=== PATIENT | male | born 1960 ===

== ENCOUNTER 2018-12-18 05:32 | Inpatient (IN) | payer MEDICARE, MEDICAID ==
[~2018-12-18] VITALS: Ht 182.9 cm; Wt 88.3 kg
[2018-12-18] MEDS ORDERED: LISINOPRIL40 MG PO (05:53)
--- NOTE | 2018-12-18 09:35 | NUR ---
58 YEAR OLD MALE PATIENT ADMITTED TO CCU VIA STRETCHER FROM ED UNDER DR. MI WITH DX OF HEART FAILURE POSSIBEL PNEUMONIA. UPON ADMIT PATIENT IS ALERT AND ORIENTED. IS ABLE TO TALK IN COMPLETE SENTENCES. INCREASED SOB WITH EXERTION, UPON TRANSFER FROM STRETCHER TO BED. IV ABX INFUSING. ADMISSION PROCESS STARTED. PATIENT STATES HE BEGAN HAVING SHORTNESS OF BREATH APPROX 4 DAYS AGO WITH RIGHT SIDE CHEST/ABD PAIN. PATEINT RECIEVED DILAUDID TWICE IN ER.
--- NOTE | 2018-12-18 09:40 | NUR ---
VERY DIAPHORTIC, C/O INCREASED RIGHT UPPER ABD PAIN. ANXIOUS. PATIENT STATES THEY MUST NOT HAVE GIVEN ME PHENERGAN IN ER WITH THE PAIN MEDICATION. ZOFRAN 4 MG IV GIVEN WELL ROUTINE MEDICATION ORDERED. PATIENT IS AWARE OF FLUID RESTRICTION OF 1600 ML OVER 24 HR.
--- NOTE | 2018-12-18 10:40 | NUR ---
NORCO 2 GIVEN FOR PAIN IN RIGHT SIDE AND CHEST. LIDOCAINE PATCH ALSO PLACED.
--- NOTE | 2018-12-18 11:33 | NUR ---
STATES HE IS BREATHING MUCH EASIER NOW.
--- NOTE | 2018-12-18 12:00 | NUR ---
ASSESSMENT DONE. BREATH SOUNDS MORE DIMINISHED ON RIGHT THAN LEFT. ENC DEEP BREATHING.
--- NOTE | 2018-12-18 12:05 | NUR ---
BOLUS 500 ML OF LR HUNG PER ORDERS.
--- NOTE | 2018-12-18 16:00 | NUR ---
ASSESSMENT UNCHANGED. TALKATIVE AND IS IN GOOD SPIRITS.
--- NOTE | 2018-12-18 16:35 | NUR ---
BLADDER SCANNED PT FOR 172ML. PT DENIED FEELING THE NEED TO VOID. STATES HE HAS DRANK MULTIPLE GLASSES OF WATER AND POWERADE. UNABLE TO PALPATE BLADDER.
--- NOTE | 2018-12-18 16:50 | NUR ---
STATES HE FEELS MUCH BETTER. MILD DISCOMFORT RIGHT UPPER ABD/LOWER R SIDE OF CHEST. VERY TALKATIVE. TAKING PO FLUIDS WELL. O2 SAT HI 90'S ON RA.
[2018-12-18] MEDS ORDERED: ALEVE220 MG PO (17:06)
--- NOTE | 2018-12-18 17:15 | NUR ---
VOIDED 150 ML OF CONCENTRATED URINE. DENEIS PAINFUL URINATION.
--- NOTE | 2018-12-18 18:23 | NUR ---
MED REC COMPLETE
--- NOTE | 2018-12-18 18:40 | NUR ---
C/O INCREASED PAIN IN RIGHT UPPER ABD, RIGHT LOWE CHEST. SKIN IS DAMP TO TOUCH. NORCO 2 TABS GIVEN.
--- NOTE | 2018-12-18 19:41 | EKG ---
[facility] [address] [place], [place] [address] Signed Sinus tachycardia with frequent premature ventricular complexes Possible Left atrial enlargement Left axis deviation Anterior infarct , age undetermined Abnormal ECG No previous ECGs available Confirmed by MAYELIN SOLANO DO ([id number]) on 12/18/2018 7:41:35 PM Electronically Signed By: MAYELIN SOLANO DO 12/18/181940 PATIENT NAME: CHANTALE TAMAYO Electrocardiogram DATE OF : 58 PHYSICIAN: MAYELIN SOLANO DO REPORT #: [id number] REPORT IS CONFIDENTIAL AND NOT TO BE RELEASED WITHOUT AUTHORIZATION
--- NOTE | 2018-12-18 19:53 | NUR ---
SHIFT REPORT RECEIVED. PATIENT RESTING IN BED. APPEARS TO BE SLEEPING. CALL LIGHT IN REACH.
--- NOTE | 2018-12-18 20:23 | NUR ---
PATIENT RESTING IN BED WATCHING TV. ORIENTED X4. REPORTS PAIN OVER XIPHOID PROCESS AND TO THE RIGHT OF THIS ABOUT 3 INCHES OVER HIS LOWER RIBS. STATES THE PAIN FEELS DEEPER THAN MUSCLE PAIN. RATED 2/10 NOW WITH PRN NORCO AND LIDODERM PATCH. PATIENT TOLERATING ROOM AIR, DENIES SOB AT THIS TIME. LUNGS ARE CLEAR IN SOCORRO UPPER LOBES WITH FINE CRACKLES IN BASES THAT DOES NOT CLEAR WITH COUGH. ABD SOFT AND NONTENDER, BOWEL SOUNDS ACTIVE. PATIENT'S RADIAL AND APICAL PULSE ARE INCONSISTENT. HEART RHYTHM SINUS TACH WITH TRIGEMITY, RATE IN 110-115 AT REST. RADIAL PULSE OF 65-70. BP STABLE. AFEBRILE. CMS INTACT, EXTREMITITES WARM AND PINK. PATIENT DENIES NEED TO VOID AT THIS TIME. FRESH ICE WATER PROVIDED. IV SL.
--- NOTE | 2018-12-18 22:41 | NUR ---
PATIENT'S FRIEND LEFT FOR THE NIGHT. PATIENT REQUEST SLEEP AID. PRN TYLENOL AND ONE TIME BENADRYL PROVIDED. PATIENT VOIDED 25MLS, STATES "I FEEL LIKE I HAVE TO GO, JUST GIVE ME A VERY MINS". provided fresh ice water.
--- NOTE | 2018-12-19 00:18 | NUR ---
PATIENT UNABLE TO VOID AT THIS TIME. PRN BOLUS OF 500 ML LR STARTED.
--- NOTE | 2018-12-19 01:05 | NUR ---
BOLUS INFUSED. REQUESTING PAIN MED FOR R CHEST DISCOMROT. GIVEN 2 NOROC PO.
--- NOTE | 2018-12-19 02:44 | NUR ---
NOTIFED OF PATIENT'S LOW URINE OUTPUT. NO NEW ORDERS.
--- NOTE | 2018-12-19 03:20 | NUR ---
TELEPHONE ORDER FROM DR. SOLANO TO INFUSE 500 ML LR AT 250 ML/HR. DISCUSSED THIS WITH PATIENT AND STARTED BOLUS. PATIENT DENIES ANY NEEDS.
--- NOTE | 2018-12-19 05:00 | NUR ---
PATIENT RESTING IN BED. STATES HE IS HAVING TROUBLE GETTING COMFORTABLE BUT DENIES PAIN. LUNGS ARE CLEAR, DIM IN THE BASES. NO COMPLAINTS OF NAUSEA. DENIES NEED TO VOID, STATES "I'M GETTING THERE".
--- NOTE | 2018-12-19 05:33 | NUR ---
PATIENT VOIDED 100 ML AND HAD SMALL BM. REPORTS FEELING CONSTIPATED, AGREED STOOL SOFTENER WOULD BE HELPFUL. NIO ADDED TO START THIS AM. PATIENT DENIES FEELING SOB OR PAINFUL. SITTING IN BED USING CELLPHONE.
--- NOTE | 2018-12-19 08:22 | NUR ---
PT ALERT AND ORIENTED SITTING IN RECLINER. MD ORDERS RECEIVED. LASIX GIVEN. 16F CHOWDARY CATHETER INSERTED WITHOUT DIFFICULTY. IMMEDIATE RETURN OF DARK YELLOW URINE NOTED. PT JAMIL WELL. ASSESSMENT COMPLETE.
--- NOTE | 2018-12-19 08:40 | NUR ---
FLUID RESTRICTION ORDER NOTED AND DISCUSSED WITH PT. PT STATES HIS UNDERSTANDING OF LIMITING HIS FLUID INTAKE THROUGHOUT THE DAY.
--- NOTE | 2018-12-19 10:20 | NUR ---
PT SITTING IN BED ON HIS PHONE. CHOWDARY DRAINED FOR 950 ML YELLOW URINE. PT STATES HE FEELS LESS PRESSURE/PAIN BENEATH THE RIGHT BREAST. RATES PAIN 1/10 ON THE PAIN SCALE. NO OTHER REQUESTS OR QUESTIONS AT THIS TIME. CALL LIGHT IN REACH.
--- NOTE | 2018-12-19 10:25 | NUR ---
Certified Heart Failure Nurse Notes: Diagnosis: pneumonia and CHF Salvager -none PCP: none. Will need to establish with one. Date of echocardiogram 12/18/18 results pending Admit Wt.: 199 lb. Admit BNP: 1880 Social support system: Lives alone with dogs. Has uncle in area Weight monitoring: Scale present in home. Identified how to weigh daily/ when to notify PCP Symptom management: Addressed monitoring and reporting changes utilizing Zones form and symptom log Transportation mode: self. Reports not a problem Diet: Usual meals include home cooked three times a day. Dines out 2 times per week. Demonstrates label reading for portion size and sodium in mg. States he has recently been more aware of salt content in canned foods and that he knows he will have to decrease jerky intake. 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 Has been counseled on minimizing/avoiding use of NSAIDs. He does take NSAIDs routinely at this time. Advanced directive: Not discussed at this initial visit Recommendations prior to discharge: Document ambulation oxygen saturations prior to discharge Absence of orthostatic hypotension. Follow up appointment made within 7-10 days of discharge to [facility]. Then to establish with a PCP. Discharge weight less than admit weight. Discharge BNP less than admit (as per [facility] Heart Failure DC Bundle) Barriers to self-care include: Not established with a primary care or flight operations coordinator. Knowledge deficit due to new diagnosis. Follow-up plans: This was the initial introduction to what heart failure is and importance of self-care. Patient agrees to follow up call from this service. Will make an outpatient HF education appointment with him at that time. Will need low sodium shopping and restaurant list. Teaching materials given today: [facility] Heart Failure bundle folder-[facility] My Action Plan Living Well with Heart Failure book, Daily weight and symptom monitoring log, Zones magnet, [facility] contact information, label reading handout.
--- NOTE | 2018-12-19 12:12 | NUR ---
PT RESTING IN BED WITH EYES CLOSED. MD IN TO SEE PT TO DISCUSS PLAN OF CARE. VS AND ASSESSMENT COMPLETE. PT DENIES NEEDS AT THIS TIME, WANTS TO REST. CALL LIGHT IN REACH.
--- NOTE | 2018-12-19 13:18 | NUR ---
PT MEDICATED WITH ONE PRN NORCO FOR 5/10 PAIN UNDER HIS RIGHT BREAST. CRACKERS PROVIDED. PT REFUSING LUNCH AT THIS TIME, STATING HE JUST DOESN'T FEEL LIKE EATING AGAIN.
--- NOTE | 2018-12-19 14:17 | NUR ---
PT RESTING IN BED WITH EYES CLOSED. RR EVEN AND UNLABORED, OXYGEN SATURATIONS 95% ON RA, HR 116. CHOWDARY DRAINED OF 1150 ML YELLOW URINE.
--- NOTE | 2018-12-19 14:47 | NUR ---
PT OXYGEN SATURATIONS NOTED TO BE 87% ON RA WHILE SLEEPING, 2L NC PLACED. PULSE ON PULSE OXIMETRY READING LOW 36. RADIAL PULSE PALPATED AND NOTED TO BE IRREGULAR WITH A RATE AROUND 60. PT AWOKE AND DENIES SOB OR CHEST PAIN. PT LAYING FLAT IN BED. OXYGEN SATS UP TO 99%.
--- NOTE | 2018-12-19 17:21 | NUR ---
PT UP TO SHOWER INDEPENDENTLY. HR UP TO 130'S. PT DENIES SOB OR PAIN WHILE IN THE SHOWER. PT BACK TO BED, STATES "I FEEL LIKE I DID PRETTY GOOD IN THERE". ORAL CARE DONE BY PT. NANNETTENS CHANGED.
--- NOTE | 2018-12-19 19:30 | NUR ---
PT REPORT RECIEVED BY CCU RN. PT REPORTS 7/10 MID STERNAL TO LOWER RIGHT RIB PAIN. STATES THE PAIN IS WORSE WITH PALPATION AND MOVEMENT. UPON AUSCULTATION, SCATTERED CRACKLES HEARD IN BASES, CLEAR IN UPPER LOBES. HEART RATE 110-120 AT REST. DISTAL PULSES ARE THREADY IN THE 40'S- 50'S. NO EDEMA NOTED. CHOWDARY CATHETER DRAINING PINK TINGED URINE. PAIN MEDICATION ADMINISTERED, PLAN OF CARE FOR THE NIGH DISCUSSED. ALL QUESTIONS ANSWERED, PT VERBALIZED UNDERSTANDING OF CARE PLAN. CALL LIGHT WITHIN REACH. NO FURTHER STATED OR ASSESSED NEEDS AT THIS TIME.
--- NOTE | 2018-12-19 20:21 | NUR ---
PT UP TO BATHROOM. HAD SMALL HARD BM. HEART RATE MAINTAINED IN THE 110'S WHILE AMBULATING. BACK IN BED AT THIS TIME. CALL LIGHT WITHIN REACH. NO FURTHER REQUESTS AT THIS TIME.
--- NOTE | 2018-12-19 21:45 | NUR ---
PT O2 SATURATIONS AT 86 PERCENT WHILE SLEEPING. PLACED ON 2 L NC AT THIS TIME. SATURATIONS NOW AT 96 PERCENT ON 2 L.
--- NOTE | 2018-12-20 00:17 | NUR ---
IN FOR ASSESSMENT. PT AWOKE TO VOICE AND FELL BACK ASLEEP DURING ASSESSMENT. PT DENIES ANY NEEDS AT THIS TIME. CALL LIGHT AND PERSONAL BELONGINGS WITHIN REACH. WILL CONTINUE TO MONITOR
--- NOTE | 2018-12-20 02:27 | NUR ---
PT RESTING WITH EYES CLOSED, BREATHING EVEN AND UNLABORED. HEART RATE 104 BPM AT REST. OXYGEN SATURATIONS AT 96 PERCENT ON 2 L NC.
--- NOTE | 2018-12-20 04:24 | NUR ---
IN ROOM FOR ASSESSMENT, PT ASLEEP THROUGH MAJORITY OF ASSESSMENT. LUNGS DIMINSHED IN BOTH BASES. HEART RATE IN THE 100-110 AT REST. RESPIRATIONS IS EVEN AND UNLABORED. CALL LIGHT WITH REACH. NO FURTHER NEEDS AT THIS TIME.
--- NOTE | 2018-12-20 06:09 | NUR ---
PT IN ROOM WATCHING TELEVISION. STATES PAIN IS AT A TOLERABLE LEVEL. CALL LIGHT WITHIN REACH. NO FURTHER REQUESTS AT THIS TIME.
--- NOTE | 2018-12-20 07:30 | NUR ---
PATIENT SHIFT REPORT RECEIVED FROM INSURANCE COUNSELOR RN. PATIENT IS RESTING IN CHAIR. PATIENT STATES, "I AM DOING MUCH BETTER THAN WHEN I FIRST CAME IN". BREAKFAST ORDERED. PATIENT DENIES ANY NEEDS AT THIS TIME. WILL CONTINUE TO CLOSELY MONITOR.
--- NOTE | 2018-12-20 08:17 | NUR ---
PATIENT SHIFT ASSESSMENT COMPLETED. PATIENT BREATH SOUNDS CLEAR AND PATIENT IS ON RA. BOWEL TONES ACTIVE. PATIENT STATES HE HAD A HARD BM LAST NIGHT. WILL GIVE MOM TODAY. NO EDEMA NOTED. TEA COLORED URINE PRESENT IN CHOWDARY CATHETER. WILL CONTINUE TO CLOSELY MONITOR. CALL LIGHT IN REACH. NO OTHER NEEDS AT THIS TIME.
--- NOTE | 2018-12-20 09:38 | NUR ---
MEDICATIONS ADMINISTERED. PATIENT RESTING IN BED. PATIENT STATES, "HAVE YOU GOTTEN ORDERS FOR ME TO LEAVE TODAY?". UPDATED THAT MD IS HERE AND WILL BE IN IN A LITTLE WHILE TO DISCUSS PLAN OF CARE. PATIENT STATED, "WELL, NO I AM LEAVING TODAY NO MATTER WHAT, THE DOCTOR THAT ADMITTED ME SAID HE WOULD HAVE ME OUT BY MONDAY, MY ANXIETY GETS TO HIGH BEING CONFINED FOR TO LONG.". DISCUSSED WITH PATIENT POSSIBLY BEING ABLE TO GO FOR A WALK OUTSIDE. WILL UPDATE MD THAT PATIENT STATES HE IS LEAVING TODAY. WILL FOLLOW-UP WITH MD.
--- NOTE | 2018-12-20 11:53 | NUR ---
MD OKAYED PATIENT TO BE ABLE TO GO OUTSIDE FOR A WALK. PER PATIENT HE FEELS COOPED UP AND IT IS INCREASING HIS ANXIETY. PATIENT STATED, "I JUST NEED SOME FRESH AIR AND TO LOOK AND MAKE SURE MY BRAND NEW CAR IS STILL HERE". ASKED PATIENT IF NICOTINE PATCH WAS WORKING WELL FOR PATIENTS CRAVINGS FOR CIGARETTES AND PATIENT STATED "YES, I DONT HAVE ANY URGE FOR IT RIGHT NOW". PATIENT WENT OUTSIDE AND PULLED OUT A CIGARETTE WITH THE AUTO CLEANER. AUTO CLEANER EDUCATED PATIENT AGAIN HE COULD NOT SMOKE ON THE CAMPUS AND WAS NOT ALLOWED TO SMOKE WHILE A PATIENT HERE. PATIENT TOOK ONE DRAG AND PUT IT OUT. PATIENT STATED IT MADE HIM SICK AND HE WONT DO IT AGAIN. THIS RN UPDATED MD SOLANO. PATIENT IS NOT ALLOWED TO GO BACK OUTSIDE AND ABSOLUTELY NO SMOKING. IF HE WISHES TO BE ABLE TO GO SMOKE HE CAN LEAVE AMA. PATIENT IS AGREEABLE TO PLAN OF CARE AND IS NOT ALLOWED TO SMOKE OR GO BACK OUTSIDE. PATIENT EDUCATED IF THE URGE ARISES HE ABSOLUTELY CAN NOT SMOKE IN THE BUILDING IT COULD CAUSE THE BUILDING TO EXPLODE D/T THE OXYGEN. PATIENT UNDERSTANDS AND STATES, "OWH NO, I WONT SMOKE IN HERE, OR AT ALL, IT WAS DISGUSTING". SPOKE WITH PATIENT REGARDING THE QUIT LINE, PATIENT IS INTERESED IN EXTRA HELP TO HELP HIM QUIT. CALLED [facility] AND THEY WILL BE IN TO SEE HIM.
--- NOTE | 2018-12-20 12:18 | NUR ---
PATIENT LUNCH ORDERED. SPOKE WITH PATIENT ABOUT HIS PLAN OF CARE, AND THAT HE IS CONSIDERED A MED-SURGE PATIENT NOW AT THIS TIME AND WE WILL TRY AND GET HIM TRANSFERED TO THE MED-SURG FLOOR ONCE A BED IS AVAILABLE. PATIENT STATED, "IF I STAY TONIGHT, I REALLY WOULD LIKE TO HAVE A DIFFERENT ROOM, IT WOULD HELP DECREASE MY ANXIETY ABOUT HAVING TO STAY ANOHER NIGHT, AND REINFORCE THAT I AM GETTING BETER AND NOT HAVING TO STAY IN THE CRITICAL CARE".
--- NOTE | 2018-12-20 13:30 | NUR ---
PATIENT UP WALKING AROUND THE UNTI AND SITTING IN THE WAITING ROOM TO HAVE A DIFFERENT VIEW. PATIENT STATES "I AM JUST REALLY BORED". PROVIDED PLAYING CARDS AT THIS TIME. PATIENT DENIES ANY OTHER NEEDS AT THIS ITME. WILL CONTINUE TO CLOSELY MONITOR.
--- NOTE | 2018-12-20 14:46 | NUR ---
PATIENT REPORTGIVEN TO URSZULA COTTRELL AND PATIENT TRANSFERED TO ROOM 107. PATIENT WAS ABLE O WALK TO ROOM 107 WITH NO DIFFICULTIES. PROVIDED DICOM GridO GAME, CROSSWORD PUZZLE, AND CARDS BECAUSE PATIENT STATES HE IS BORED. PATIENT IS AGREEABLE TO CURRENT PLAN OF CARE. PATIENT DENIES ANY NEEDS AT THIS TIME. VITALS COMPLETED PRIOR TO TRANSFER. URSZULA RN WILL RESUME CARE.
--- NOTE | 2018-12-20 15:00 | NUR ---
1440: PT ARRIVED TO [facility] AND IS NOW RESTING IN HIS BED. HE STATES HIS PAIN IN HIS MED CHEST THAT IS RELATED TO HIS PNEUMONIA AND UNCHANGED IN TYPE AND LOCATION SINCE IT STARTED ON LAST MONDAY. HE RATES HIS PAIN AT A 5/10 AT THIS TIME. PT ORIENTED TO THE ROOM AND THE USE OF HIS CALL [email or web address].
--- NOTE | 2018-12-20 15:10 | NUR ---
PT MEDICATED FOR PAIN, SEE EMAR.
--- NOTE | 2018-12-20 15:57 | NUR ---
Pt watching tv and states his pain is much improved and now rates it at 2/10.
--- NOTE | 2018-12-20 17:39 | NUR ---
PT WATCHING TV AND STATES HIS PAIN IS GOOD AT THIS TIME STATING IT IS A 2.5/10. PT DENIES THE NEED OF ANYTHING AND HE HAS ORDERED HIS DINNER.
--- NOTE | 2018-12-20 19:27 | NUR ---
REPORT RECEIVED, PT RESTING IN BED, NO NEEDS AT THIS TIME, CALL LIGHT WITHIN REACH. FALL PRECAUTIONS IN PLACE.
--- NOTE | 2018-12-20 20:25 | NUR ---
PT RESTING IN BED, EVENING MEDS GIVEN, PT AOX4, APPROPRIATE, ASSESSMENT COMPLETE, PT ON TELE #1, HR 104, SINUS TACH, PT'S VSS, ON RA, NO C/O SOB/CP, LS CLEAR, NO EDEMA NOTED, PULSES FELT, CMS INTACT. PT DENIES ANY NEEDS AT THIS TIME, CALL LIGHT WITHIN REACH. FALL PRECAUTIONS IN PLACE.
--- NOTE | 2018-12-20 21:00 | NUR ---
CHARGE NURSE ROUNDING. pt RESTING IN BED. NO REQUESTS OR COMPLAINTS AT THIS TIME. CALL LIGHT WITHIN REACH. WHITEBOARD UPDATED.
--- NOTE | 2018-12-20 21:10 | NUR ---
PT CALLED REQUESTING PAIN MEDICINE. ADMINISTERED NORCO, PT ALSO ASKED ABOUT TYLENOL PM TO HELP HIM SLEEP. WILL TALK TO PT'S PRIMARY RN MADYSON. PT DENIES FURTHER NEEDS, CALL LIGHT IS WITHIN REACH.
--- NOTE | 2018-12-20 22:53 | NUR ---
PT RESTING IN BED, EYES CLOSED, BREATHS EVEN, UNLABORED, NO NEEDS AT THIS TIME, CALL LIGHT WITHIN REACH. FALL PRECAUTIONS IN PLACE.
--- NOTE | 2018-12-20 23:21 | NUR ---
CALL LIGHT ANSWERED, PT GIVEN ICE WATER PER REQUEST, NO OTHER NEEDS AT THIS TIME, CALL LIGHT WITHIN REACH. FALL PRECAUTIONS IN PLACE.
--- NOTE | 2018-12-21 01:10 | NUR ---
CALL LIGHT ANSWERED, PT REQUESTING CRACKERS, CRACKERS GIVEN PER REQUEST, PT C/O INSOMNIA, PRN BENADRYL GIVEN PER EMAR RELATED TO INSOMNIA, PT REMAINS RESTING IN BED, ASSESSMENT COMPLETE, NO FURTHER NEEDS AT THIS TIME, DENIES PAIN, ON RA, O2 SAT 95%, NO C/O SOB/CP. CALL LIGHT WITHIN REACH. FALL PRECAUTIONS IN PLACE.
--- NOTE | 2018-12-21 03:00 | NUR ---
PT RESTING IN BED, EYES CLOSED, BREATHS EVEN, UNLABORED, NO NEEDS AT THIS TIME, CALL LIGHT WITHIN REACH.
--- NOTE | 2018-12-21 05:11 | NUR ---
PT AOX4, APPROPRIATE, PT RECEIVED PRN PAIN MEDICATION X1 THIS SHIFT, ALSO RECEIVED PRN BENADRYL RELATED TO INSOMNIA PER EMAR, PT ALSO WALKED 1 LAP IN THE GALVAN THIS SHIFT, 1800 ML FLUID RESTRICTION, 2G NA DIET, TOLERATING BOTH WELL, IV SL, EDUCATION REGARDING CHF PROVIDED, PT INDEPENDENT IN ROOM, NO C/O SOB/CP, ON RA. USES CALL LIGHT APPROPRIATELY, VSS.
--- NOTE | 2018-12-21 05:32 | NUR ---
PT C/O 6/10 PAIN RELATED TO RIBS, PT GIVEN PRN PAIN MEDICATION PER EMAR. PT RESTING IN BED, VSS, LAB TO ROOM. CALL LIGHT WITHIN REACH.
--- NOTE | 2018-12-21 05:40 | NUR ---
PT WALKING IN THE HALLS, PT STATES "I AM GOING TO GO OUT TO MY CAR" PT ASKED TO NOT LEAVE THE FLOOR, EDUCATION PROVIDED REGARDING PT'S INPATIENT [facility] POLICIES, PT BECAME FRUSTERATED AND THEN STATED "FINE, GIVE ME THE PAPER SO I CAN LEAVE", PT REQUESTING IV TO BE REMOVED WHILE WALKING DOWN THE HALLWAY TO LEAVE, IV REMOVED PER PT'S REQUEST, REMOVED WNL, TIP INTACT LALITHA RN IN ROOM WITH THIS RN AND PT, PT DECIDED TO WAIT UNTIL LATER TO LEAVE, PT CURRENTLY SITTING IN ROOM WATCHING TV, DR. SOLANO NOTIFIED AND TO THE FLOOR, DR. SOLANO PRINTED PRESCRIPTIONS FOR PT TO TAKE HOME IF PT CONTINUES TO LEAVE AMA.
[2018-12-21] MEDS ORDERED: CARVEDILOL12.5 MG PO (06:03)
[2018-12-21] MEDS ORDERED: LISINOPRIL5 MG PO (06:03)
[2018-12-21] MEDS ORDERED: DOXYCYCLINE HY100 MG PO (06:04)
[2018-12-21] MEDS ORDERED: LASIX20 MG PO (06:05)
--- NOTE | 2018-12-21 06:15 | NUR ---
DR. SOLANO CALLED THE FLOOR, RECEIVED TELEPHONE ORDER TO ADMINISTER MORNING DOSE OF PT'S SCHEDULED LISINOPRIL AND COREG NOW, TORB, NO FURTHER ORDERS
--- NOTE | 2018-12-21 07:27 | NUR ---
0718: UPON CHECKING IN ON THE PT HE WAS NOT IN HIS ROOM. STAFF WENT LOOKING FOR THE PT AND HE WAS LOCATED IN THE ENTRY LOBBY. HE STATES HE WALKED OUTSIDE AROUND BY THE ER. HE HAS NO IV AND IS IN STREET CLOSE. HE WAS INFORMED BY MADYSON PRIOR THAT THIS IS NOT ALLOWED AND DID SO ANYWHY. THE PT SMELLS OF SMOKE BUT STATES HE DID NOT SMOKE WHILE HE WAS OUTSIDE. CHANTALE STATES HE IS PLANNING ON LEAVING AMA "AFTER I SEE THE DOCTOR THIS MORNING". CHANTALE STATES HIS PAIN LEVEL IS "ALRIGHT". REPORT RECIVED FROM MADYSON COTTRELL.
--- NOTE | 2018-12-21 07:31 | NUR ---
REPORT GIVEN TO URSZULA COTTRELL, PT RESTING IN ROOM AT THIS TIME. CALL LIGHT WITHIN REACH.
--- NOTE | 2018-12-21 07:32 | NUR ---
PATIENT SITTING UP IN BED. RN IN ROOM. PATIENT REFUSED TO ORDER BREAKFAST TODAY. CALL LIGHT WITHIN REACH. NO OTHER NEEDS AT THIS TIME
--- NOTE | 2018-12-21 08:39 | NUR ---
IV WAS REMOVED BY PRIOR SHIFT THE PT WAS TALKING ABOUT LEAVING AMA.
--- NOTE | 2018-12-21 08:47 | NUR ---
PT STATES HE PLANS TO LEAVE THIS AM, DR SOLANO AWARE. PT DENIES ANY SOB, CHEST PAIN, LIGHTHEADNESS OR ANY OTHER PHYSICAL PROBLEMS. HE STATES "JUST ANXIETY".
--- NOTE | 2018-12-21 08:59 | NUR ---
DR SOLANO INTO THE ROOM SPEAKING WITH THE PT.
--- NOTE | 2018-12-21 10:42 | NUR ---
CALLED PT WITH FOLLOW UP APPOINTMENT. IT WILL BE WITH DR MI ON AT 11:30
--- NOTE | 2018-12-24 09:39 | NUR ---
Heart failure discharge follow up call #[phone] for patient to call this service. Would like to invite patient to outpatient heart failure education and will need to attend a cardiac rehabilitation program if approved by installer molding and trim.
== END 2018-12-21 09:32 | disposition home or self-care (01) | DRG 291 ==
LOC: ED 05:32 → CCU 08:45 → MS 12-20 14:40
PROVIDERS: ADMIT Internal Medicine
DX: I11.0 Hypertensive heart disease with heart failure (principal); J13 Pneumonia due to Streptococcus pneumoniae; I50.20 Unspecified systolic (congestive) heart failure; F17.290 Nicotine dependence, other tobacco product, uncomplicated; Z79.899 Other long term (current) drug therapy
CPT/HCPCS: 36415; 71045; 76705; 80048; 80053; 80061; 81001; 82728; 83036; 83605; 83690; 83735; 83880; 84100; 84443; 84484; 85025; 87040; 87449; 87899; 93005; 93010; 93306; 94667; 94668; 96374; 96375; 96376; 99285-25; 99406; J0456; J0696; J1170; J1650; J1940; J2405; J7030; J7060; J7120